=== PATIENT | male | born 1990 | race African-American/Black ===

== ENCOUNTER → 2016-08-26 | Outpatient (CLI) | payer OTHER ==
[~2016-08-26] MED LIST: IBUPROFEN800 MG PO; LORTAB 7.5-3251 EACH PO; SLEEPING PILL; VITAMIN D35000 UNI1 PO
--- NOTE | ~2016-08-26 | CR181 ---
[facility] A Service of [facility] RADIOLOGY TEXT RESULTS PATIENT: SANA ENAMORADO LOCATION: [facility] : [birth year] UNIT #: [id number] AGE: [address]: MARIA DE JESUS TALAMANTES SEX: M ORDER DR: [id number] [facility] [address] [place], [place] [address] [id number] O MR#: [id number] Acc #: [id number] NAME: SANA ENAMORADO : 1990 SEX: M STUDY DATE/TIME: 08/26/2016 14:19 UNIT: [facility] ROOM: STUDY DESCRIPTION: CR Lumbar Spine 2 or 3 Views Attending Physician: Maria De Jesus Talamantes Aprn Referring Physician: Maria De Jesus Talamantes Aprn Ordering Physician: Maria De Jesus Talamantes Aprn Primary Care Physician: Emmie Corey M.D. MEDICAL IMAGING REPORT This report is preliminary unless electronic signature is present EXAM Lumbar spine 3 views 08/26/2016 HISTORY Low back pain for 3 months status post hernia repair. FINDINGS AP and lateral projections of the lumbar segment show good mineralization of both anterior and posterior elements. They are all anatomically normal without indication of fracture, dislocation, or malignant change of a sclerotic or lytic type. There is no congenital defect noted. The sacroiliac joints are normal. IMPRESSION Normal lumbar spine. Dictated by... Yao Cardona M.D. THIS IS AN ELECTRONICALLY VERIFIED REPORT Yao Cardona M.D. at 08/29/2016 10:36 AM CHOCO/earnestine TD: 08/26/2016 23:24 JOB #: [id number] MEDICAL IMAGING REPORT COPY
== END | disposition home or self-care (01) ==
LOC: CRAD 14:12
DX: M54.40 Lumbago with sciatica, unspecified side (principal)
CPT/HCPCS: 72100